=== PATIENT | male | born 1940 | race Caucasian/White ===

== ENCOUNTER 2019-02-14 13:11 | Emergency (ER) | payer OTHER ==
[~2019-02-14] VITALS: Ht 175.3 cm; Wt 90.0 kg
[2019-02-14 13:25] VITALS: Ht 175.3 cm; Wt 90.0 kg
[2019-02-14] MEDS ORDERED: LEVETIRACETAM 1000 MG (PMX) 100 ML IVPB STA (13:29)
[2019-02-14] MEDS ORDERED: hydrALAzine 20 MG INJ IV ONE ×2 (14:00→17:00)
[2019-02-14] MEDS ORDERED: SUCR500T PO (15:35)
[2019-02-14] MEDS ORDERED: LOSA100T15 PO (15:35)
[2019-02-14] MEDS ORDERED: PHEN50TA3 PO (15:35)
[2019-02-14] MEDS ORDERED: LIDO30JE13 MM (15:35)
[2019-02-14] MEDS ORDERED: DORZ10DR6 LEFT EYE (15:43)
[2019-02-14] MEDS ORDERED: CARV6.25 PO (15:43)
[2019-02-14] MEDS ORDERED: FURO40TA4 PO (15:43)
[2019-02-14] MEDS ORDERED: DEXA5DRO11 LEFT EYE (15:43)
[2019-02-14] MEDS ORDERED: ACET-141 PO (15:43)
[2019-02-14] MEDS ORDERED: CETI10CA PO (15:43)
[2019-02-14] MEDS ORDERED: OFLO5DRO46 LEFT EYE (15:43)
[2019-02-14] MEDS ORDERED: ATOR40TA68 PO (15:43)
[2019-02-14] MEDS ORDERED: SS SC (15:43)
[2019-02-14] MEDS ORDERED: TERA5CAP3 PO (15:43)
[2019-02-14] MEDS ORDERED: HYDR-3672 PO (15:43)
[2019-02-14] MEDS ORDERED: THIA100T56 PO (15:43)
[2019-02-14] MEDS ORDERED: HYDR100T25 PO (15:43)
[2019-02-14] MEDS ORDERED: TURM500C9 PO (15:44)
[2019-02-14] MEDS ORDERED: PHENYTOIN 1,000 MG in SOD CHLORIDE 0.9% 80 ML IVPB STA (16:28)
[2019-02-14] MEDS ORDERED: FLUMAZENIL 0.5 MG INJ IV ONE (17:30)
--- NOTE | 2019-02-14 17:40 | ERD ---
ER Documentation Chief Complaint Chief Complaint SUSPECTED SEIZURE WHILE RECEIVING DIALYSIS HPI This is a 78-year-old male who is brought in by EMS for seizure. The patient had just finished dialysis and he had a seizure at the dialysis center. The people at the center thought he was not breathing so they started CPR and called EMS. When EMS arrived the patient had a pulse but was postictal. They loaded him onto the ambulance and en route here he had another seizure about a minute and a half long that was general tonic-clonic and was postictal again. He did not wake up in between seizures. Patient apparently was in good health before the seizure. There is no family here to tell me what medications he takes for seizure disorder although he has on long-standing ROS All systems reviewed and are negative except as per history of present illness. Medications Home Meds Reported Medications Turmeric Root Extract (Turmeric) 500 Mg Capsule, 500 MG PO DAILY, CAP 02/14/19 Terazosin Hcl* (Terazosin Hcl*) 5 Mg Capsule, 5 MG PO HS, CAP 02/14/19 Hydralazine Hcl* (Hydralazine Hcl*) 100 Mg Tablet, 100 MG PO Q8, #90 TAB 02/14/19 Hydralazine Hcl* (Hydralazine Hcl*) 50 Mg Tab, 100 MG PO TID, #180 TAB 02/14/19 Dorzolamide/Timolol* (Dorzolamide/Timolol*) 10 Ml Drops, 1 DROP LEFT EYE BID, #1 EA 02/14/19 Cetirizine Hcl* (Zyrtec*) 10 Mg Capsule, 10 MG PO DAILY, TAB 02/14/19 Carvedilol* (Coreg*) 6.25 Mg Tablet, 6.25 MG PO BID, #60 TAB 02/14/19 Atorvastatin* (Atorvastatin*) 40 Mg Tablet, 40 MG PO QHS, #30 TAB 02/14/19 Acetaminophen* (Acetaminophen*) 500 MG Extra Strength Tablet, 500 MG PO Q4H PRN for PAIN AND OR ELEVATED TEMP, TAB 02/14/19 Ofloxacin* (Ocuflox*) 0.3%-5 Ml Ophth Drops, 1 DROP LEFT EYE QID, BOTTLE 02/14/19 Dexamethasone* Ophth (Dexamethasone* Ophth) 0.1%-5 Ml Drops, 1 DROP LEFT EYE Q4, EA 02/14/19 Furosemide* (Furosemide*) 40 Mg Tablet, 40 MG PO DAILY, TAB 02/14/19 Thiamine* (Vitamin B-1*) 100 Mg Tablet, 100 MG PO DAILY, TAB 02/14/19 Insulin Human Regular (Novolin-R U-100) 100 Unit/Ml Soln, 0-12 SC SLIDING SCALE Q6, EA 02/14/19 Lidocaine (Lidocaine Topical) 30 Ml Jel, 30 ML MM PRN PRN for PAIN LEVEL 1-5 02/14/19 Losartan Potassium* (Losartan Potassium*) 100 Mg Tablet, 100 MG PO DAILY, TAB 02/14/19 Sucroferric Oxyhydroxide (Velphoro) 500 Mg Tab.chew, 500 MG PO DAILY, TAB.CHEW 02/14/19 Phenytoin* (Dilantin* Chew) 50 Mg Tab.chew, 150 MG PO BID, TAB.CHEW 02/14/19 Allergies Allergies: Coded Allergies: Unknown: Unable to obtain (Unverified , 02/14/19) PT ALTERED PMhx/Soc Hx Alcohol Use: No (unk) Hx Substance Use: No (unk) Hx Tobacco Use: No (unk) Smoking Status: Unknown if ever smoked FmHx Unable to obtain due to mental status Physical Exam Vitals Vital Signs Date Temp Pulse Resp B/P (MAP) Pulse Ox O2 O2 Flow FiO2 Time Delivery Rate 02/14/19 91 16 214/80 97 Nasal 2.0 16:00 (124) Cannula 02/14/19 91 16 179/76 95 Non 15:00 (110) Rebreather 02/14/19 87 18 228/91 100 Non 14:00 (136) Rebreather 02/14/19 98.4 87 20 185/104 100 13:25 (131) Physical Exam Const: [Well-developed, well-nourished] Head: [Atraumatic, normocephalic] Eyes: [Normal Conjunctiva, PERRLA, EOMI, normal sclera, no nystagmus] ENT: [Normal External Ears, Nose and Mouth, moist mucus membranes.] Neck: [Full range of motion. No meningismus, no lymphadenopathy.] Resp: [Clear to auscultation bilaterally, no wheezing, rhonchi, rales] Cardio: [Regular rate and rhythm, no murmurs, S1 S2 present] Abd: [Soft, non tender x 4, non distended. Normal bowel sounds, no guarding or rebound, Skin: [No petechiae or rashes, no ecchymosis , no maculopapular rash] Back: [No midline or flank tenderness] Ext: [No cyanosis, or edema,normal inspection, neurovascularly intact x 4] Neur: Patient is postictal and is difficult to examine him neurologically Psych: Unable to obtain] After a few hours the patient is moving all fours and will be awake to physical stimulus and look at you briefly then go back to sleep. Result Diagram: 02/14/19 1334 02/14/19 1333 Results 24 hrs Laboratory Tests Test 02/14/19 13:33 02/14/19 13:34 Sodium Level 138 mmol/L Potassium Level 4.1 mmol/L Chloride Level 96 mmol/L Carbon Dioxide Level 21 mmol/L Anion Gap 21 Blood Urea Nitrogen 74 mg/dl Creatinine 6.52 mg/dl Est Glomerular Filtrat Rate mL/min mL/min Glucose Level 132 mg/dl Calcium Level 9.2 mg/dl Total Bilirubin 0.2 mg/dl Direct Bilirubin 0.00 mg/dl Indirect Bilirubin 0.2 mg/dl Aspartate Amino Transf (AST/SGOT) 45 IU/L Alanine Aminotransferase (ALT/SGPT) 18 IU/L Alkaline Phosphatase 116 IU/L Total Protein 7.8 g/dl Albumin 4.3 g/dl Globulin 3.50 g/dl Albumin/Globulin Ratio 1.22 Phenytoin (Dilantin) Level 5.0 ug/ml White Blood Count 6.3 10^3/ul Red Blood Count 4.06 10^6/ul Hemoglobin 12.3 g/dl Hematocrit 37.1 % Mean Corpuscular Volume 91.4 fl Mean Corpuscular Hemoglobin 30.3 pg Mean Corpuscular Hemoglobin Concent 33.2 g/dl Red Cell Distribution Width 17.6 % Platelet Count 295 10^3/UL Mean Platelet Volume 10.2 fl Immature Granulocytes % 0.500 % Neutrophils % 79.2 % Lymphocytes % 7.5 % Monocytes % 8.1 % Eosinophils % 4.1 % Basophils % 0.6 % Nucleated Red Blood Cells % 0.0 /100WBC Immature Granulocytes # 0.030 10^3/ul Neutrophils # 5.0 10^3/ul Lymphocytes # 0.5 10^3/ul Monocytes # 0.5 10^3/ul Eosinophils # 0.3 10^3/ul Basophils # 0.0 10^3/ul Nucleated Red Blood Cells # 0.0 10^3/ul Current Medications Medications Dose Sig/Anabell Start Time Status Last (Trade) Ordered Route PRN Stop Time Admin Dose Reason Admin 100 ml @ ONCE STAT 02/14/19 DC 02/14/19 Levetiracetam 400 mls/hr IVPB 13:29 02/14/19 14:03 13:43 Hydralazine 10 mg ONCE ONCE 02/14/19 DC 02/14/19 HCl IV 14:00 02/14/19 14:03 (Apresoline) 14:01 Phenytoin 100 ml @ ONCE STAT 02/14/19 DC 02/14/19 1000 mg/ 200 mls/hr IVPB 16:28 02/14/19 17:05 Sodium 16:57 Chloride Hydralazine 10 mg ONCE ONCE 02/14/19 DC 02/14/19 HCl IV 17:00 02/14/19 17:04 (Apresoline) 17:01 Flumazenil 0.3 mg ONCE ONCE 02/14/19 DC (Romazicon) IV 17:30 02/14/19 17:31 Procedures/MDM Patient: ALYX MATAMOROS : 1940 Age: 78 Sex: M MR #: [id number] DOS: 02/14/19 1329 Ordering MD: YINKA LEAL DO Location: E/R Room/Bed: PROCEDURE: CT Brain without contrast. CLINICAL INDICATION: CT vision TECHNIQUE: A CT of the brain was performed on a multidetector CT scanner utilizing axial imaging from the skull base through the vertex without IV contrast. Multiplanar reformatted images were made. Images were reviewed on a PACS workstation. The CTDIvol is 38 mGy and the DLP is 634 mGycm. DICOM images are available. One or more of the following dose reduction techniques were utilized: 1.) Automated exposure control 2.) Adjustment of the mA +/- kV according to patient's size 3.) Use of iterative reconstruction technique. COMPARISON: None FINDINGS: Patient is status post right convexity craniotomy. There is pleural thickening deep to the craniotomy. No discrete extra-axial fluid collection or masses seen. There is underlying moderate diffuse cerebral volume loss with sulcal and ventricular dilatation. Ventricles are in the midline and of normal configuration. There is ill-defined hypodensity on the inferolateral right temporal lobe. This most likely represents postsurgical encephalomalacia, however, residual or recurrent mass cannot be ruled out. Periventricular white matter disease is seen in both cerebral hemispheres and there is cortical and subcortical white matter infarct on the inferolateral right parietal lobe. No other intra-axial masses or regions of abnormal attenuation are seen. There is no intracranial hemorrhage. Vascular calcifications are present at the base of the brain. There is normal aeration in the visualized paranasal sinuses. IMPRESSION: No intracranial hemorrhage or evidence of acute transcortical infarct. Atrophy. 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 Status post right convexity craniotomy. Ill-defined hypodensity cash and white matter inferolateral right temporal lobe. Question encephalomalacia. Residual or recurrent mass cannot be ruled out. Consider pre and post contrast MRI for more definitive diagnosis. .Omari Quevedo MD, MD Date Time Electronically viewed and signed by .Omari Quevedo MD, MD on 02/14/2019 15:23 .A/ CC: YINKA LEAL DO [id number] Patient was given IV Keppra. His family arrived and showed us that he was taking Dilantin, Dilantin level was checked and was 5. I then loaded him with IV Dilantin as well. Spoke with [facility] and the patient will be transferred to a facility there is he is still quite postictal and he needs to be admitted for observation. Departure Diagnosis: Primary Impression: Seizure disorder Condition: Stable YINKA LEAL DO Feb 14, 2019 17:40
[2019-02-14 21:30] VITALS: BP 164/50; PULSE 86; RESP 20
== END 2019-02-14 23:30 | disposition home or self-care (01) ==
LOC: E/R 13:11
DX: G40.909 Epilepsy, unspecified, not intractable, without status epilepticus (principal); E11.9 Type 2 diabetes mellitus without complications; Z79.4 Long term (current) use of insulin
CPT/HCPCS: 36415; 70450; 80053; 80185; 85025; 90935; 96374; 96375; 96376; 99285; J0360; J1165; J1953